=== PATIENT | female | born 1955 | race African-American/Black ===

== ENCOUNTER 2016-03-24 13:26 | Emergency (ER) | payer MEDICARE, OTHER ==
[~2016-03-24] VITALS: Ht 157.5 cm; Wt 81.6 kg
[~2016-03-24 13:26] MED LIST: [UNRECOGNIZED DRUG - REMARK]; [UNRECOGNIZED DRUG - REMARK]
[2016-03-24 13:44] VITALS: BP 112/69
[2016-03-24 14:42] LABS: BASOPHILS % (AUTO) 0.4 % (0.0-2.0); DIFF TOTAL % 100 %; EOSINOPHILS # (AUTO) 0.2 /CMM (0.0-0.7); EOSINOPHILS % (AUTO) 2.3 % (0.0-6.0); HEMATOCRIT 35 % (33-45); HEMOGLOBIN 11.4 g/dL (11.5-14.8); LYMPHOCYTES # (AUTO) 2.7 /CMM (0.8-4.8); LYMPHOCYTES % (AUTO) 40.5 % (20.0-44.0); MEAN CORPUSCULAR HEMOGLOBIN 28 PG (26.0-33.0); MEAN CORPUSCULAR HGB CONC 33 g/dl (31.0-36.0); MEAN CORPUSCULAR VOLUME 86 fL (82-100); MONOCYTES # (AUTO) 0.5 /CMM (0.1-1.30); MONOCYTES % (AUTO) 8.2 % (2.0-12.0); NEUTROPHILS # (AUTO) 3.3 /CMM (1.8-8.9); NEUTROPHILS % (AUTO) 48.6 % (43.0-81.0); PLATELET COUNT (AUTO) 201 /CMM (150-450); RED BLOOD CELL COUNT(AUTO) 4.05 MIL/uL (4.0-5.2); WHITE BLOOD COUNT (AUTO) 6.7 K/uL (4.3-11.0)
[2016-03-24 14:48] LABS: ANION GAP 13 (5-14); CALCIUM, SERUM 9.2 mg/dL (8.5-10.1); CARBON DIOXIDE 27 mmol/L (21-32); CHLORIDE 105 mmol/L (98-107); CREATININE 0.7 mg/dL (0.6-1.3); GFR 103 mL/min (>60); GLUCOSE 81 mg/dL (74-106); SODIUM SERUM 141 mmol/L (136-145); UREA NITROGEN, BLOOD 12 mg/dL (7-18)
[2016-03-24 14:50] LABS: INR 0.99 (0.87-1.13); PROTHROMBIN TIME 10.4 SECS (9.5-12.7)
[2016-03-24 14:53] LABS: ALANINE AMINOTRANSFERASE 21 U/L (12-78); ALBUMIN 3.8 g/dL (3.4-5.0); ASPARTATE AMINOTRANSFERASE 16 U/L (15-37); BILIRUBIN,DIRECT 0.1 mg/dL (0.0-0.2); BILIRUBIN,TOTAL 0.2 mg/dL (0.2-1.0); INDIRECT BILIRUBIN 0.1 mg/dL (0.0-1.1); TOTAL PROTEIN, SERUM 7.5 g/dL (6.4-8.2)
[2016-03-24 14:55] LABS: TROPONIN I < 0.017 ng/mL (0.00-0.056)
== END 2016-03-24 15:47 | disposition home or self-care (01) ==
LOC: ER 13:29
DX: R07.9 Chest pain, unspecified (principal); I10 Essential (primary) hypertension; F41.9 Anxiety disorder, unspecified
CPT/HCPCS: 36415; 71010-TC; 80048-TC; 80076-TC; 84484-TC; 85025-TC; 85730-TC; A4606; Z7610

== ENCOUNTER 2016-09-22 18:00 | Emergency (ER) | payer MEDICARE, OTHER ==
[~2016-09-22] VITALS: Ht 157.5 cm; Wt 86.2 kg
--- NOTE | 2016-09-22 18:08 | NUR ---
PT CALLED TO TRIAGE, PT NOT IN WAITING ROOM
[2016-09-22 18:10] VITALS: BP 100/77
[2016-09-22] MEDS ORDERED: IBUPROFEN 600 MG TABLET PO ONE ×2 (18:38→19:00)
== END 2016-09-22 19:12 | disposition home or self-care (01) ==
LOC: ER 18:09
DX: S60.212A Contusion of left wrist, initial encounter (principal); F41.9 Anxiety disorder, unspecified; I10 Essential (primary) hypertension; W22.8XXA Striking against or struck by other objects, initial encounter; Y93.89 Activity, other specified; Y92.89 Other specified places as the place of occurrence of the external cause; Y99.8 Other external cause status
CPT/HCPCS: A4606; Z7610

== ENCOUNTER 2017-01-18 16:19 | Emergency (ER) | payer MEDICARE, OTHER ==
[~2017-01-18] VITALS: Ht 157.5 cm; Wt 81.6 kg
[2017-01-18 16:22] VITALS: BP 122/80
[2017-01-18] MEDS ORDERED: IBUPROFEN 600 MG TABLET PO ONE ×2 (16:49→17:00)
== END 2017-01-18 18:02 | disposition home or self-care (01) ==
LOC: ER 16:21
DX: M25.561 Pain in right knee (principal); F41.9 Anxiety disorder, unspecified; G89.29 Other chronic pain; I10 Essential (primary) hypertension; Z90.710 Acquired absence of both cervix and uterus
CPT/HCPCS: 73564; 99284; A4606; Z7610

== ENCOUNTER 2017-03-04 16:54 | Emergency (ER) | payer MEDICARE, OTHER ==
[~2017-03-04] VITALS: Ht 157.5 cm; Wt 81.6 kg
[2017-03-04 16:54] VITALS: BP 136/89
--- NOTE | 2017-03-04 18:03 | NUR ---
CALLED BY TYREE CARMONA FOR MSE, NO ANSWER
== END 2017-03-04 18:05 | disposition left against medical advice (07) ==
LOC: ER 16:57
DX: Z53.21 Procedure and treatment not carried out due to patient leaving prior to being seen by health care provider (principal)
CPT/HCPCS: A4606; Z7610

== ENCOUNTER 2019-04-23 22:34 | Emergency (ER) | payer MEDICARE, OTHER ==
[~2019-04-23] VITALS: Ht 160 cm; Wt 68.0 kg
[2019-04-23 22:39] VITALS: BP 131/78
--- NOTE | 2019-04-23 22:54 | NUR ---
PT CAME TO ER BED 2 C/O LEFT HAND PAIN. PT STATES THAT SHE WAS GETTING CLOTHES OUT OF HER TRUNK OF THE CAR WHEN THE TRUNK DOOR HIT HER LEFT HAND (NOT CLAMPING HER HAND). PT STATES A THROBBING PAIN 10/10, ABLE TO WRIGGLE FINGERS AND WRIST. AAOX4. VSS. NO SOB. BREATHING EVENLY AND UNLABORED ON ROOM AIR.
[2019-04-23] MEDS ORDERED: KETOROLAC TROMETHAMINE INJ 60 MG/2 ML VIAL IM ONE (23:20)
[2019-04-23] MEDS: KETOROLAC TROMETHAMINE INJ 60 MG/2 ML VIAL IM ONE (23:30)
== END 2019-04-24 00:32 | disposition home or self-care (01) ==
LOC: ER 22:36
DX: S60.222A Contusion of left hand, initial encounter (principal); I10 Essential (primary) hypertension; Z60.2 Problems related to living alone; W18.09XA Striking against other object with subsequent fall, initial encounter; Y93.89 Activity, other specified; Y92.89 Other specified places as the place of occurrence of the external cause; Y99.8 Other external cause status
CPT/HCPCS: 73130-TC; J1885

== ENCOUNTER 2020-03-01 15:03 | Emergency (ER) | payer MEDICARE, OTHER ==
[~2020-03-01] VITALS: Ht 157.5 cm; Wt 81.6 kg
--- NOTE | 2020-03-01 15:20 | NUR ---
SEEN BY DR MCDONALD, WAITING FOR ORDERS
--- NOTE | 2020-03-01 16:03 | NUR ---
URINE SAMPLE AND COVID SWAB COLLECTED AND SENT TO LAB. BLOOD DRAWN BY PHLEB
[2020-03-01 16:08] LABS: BILIRUBIN,URINE SMALL (NEGATIVE); COLOR,URINE YELLOW (YELLOW); LEUKOCYTE ESTERASE ,URINE Negative (NEGATIVE); NITRITE, URINE Negative (NEGATIVE); PROTEIN,URINE 100 mg/dl (NEGATIVE); UGLUCOSE Negative (NEGATIVE); UROBILINOGEN,URINE 0.2 EU/dL (0.2)
[2020-03-01 16:15] LABS: BASOPHILS % (AUTO) 0.3 % (0.0-2.0); EOSINOPHILS % (AUTO) 0.3 % (0.0-6.0); HEMATOCRIT 37 % (33-45); HEMOGLOBIN 12.1 g/dL (11.5-14.8); LYMPHOCYTES # (AUTO) 1.6 /CMM (0.8-4.8); LYMPHOCYTES % (AUTO) 33.1 % (20.0-44.0); MEAN CORPUSCULAR HGB CONC 33 g/dl (31.0-36.0); MEAN CORPUSCULAR VOLUME 88 fL (82-100); MONOCYTES # (AUTO) 0.5 /CMM (0.1-1.30); MONOCYTES % (AUTO) 11.4 % (2.0-12.0); NEUTROPHILS # (AUTO) 2.6 /CMM (1.8-8.9); NEUTROPHILS % (AUTO) 54.9 % (43.0-81.0); PLATELET COUNT (AUTO) 159 /CMM (150-450); RED BLOOD CELL COUNT(AUTO) 4.24 MIL/uL (4.0-5.2); WHITE BLOOD COUNT (AUTO) 4.7 K/uL (4.3-11.0)
[2020-03-01 16:19] LABS: BACTERIA,URINE Rare /HPF (None Seen); RBC,URINE 0-2 /HPF (0-2); SQUAMOUS EPITHELIAL CELL,UR Few /HPF (None Seen); WBC,URINE 0-2 /HPF (0-3)
[2020-03-01 16:58] LABS: CARBON DIOXIDE 27 mmol/L (21-32); CHLORIDE 103 mmol/L (98-107); GLUCOSE 94 mg/dL (74-106); POTASSIUM 3.5 mmol/L (3.5-5.1); SODIUM SERUM 141 mmol/L (136-145); UREA NITROGEN, BLOOD 9 mg/dL (7-18)
[2020-03-01 17:03] LABS: ALANINE AMINOTRANSFERASE 61 U/L (12-78); ALBUMIN 3.5 g/dL (3.4-5.0); ALKALINE PHOSPHATASE 43 U/L (46-116); ASPARTATE AMINOTRANSFERASE 65 U/L (15-37); BILIRUBIN,TOTAL 0.4 mg/dL (0.2-1.0); LIPASE 109 U/L (73-393); TOTAL PROTEIN, SERUM 8.2 g/dL (6.4-8.2)
[2020-03-01 18:06] VITALS: BP 109/60
--- NOTE | 2020-03-01 18:06 | NUR ---
Patient discharged to home in stable condition. Written and verbal after care instructions given. Patient verbalizes understanding of instruction.
--- NOTE | 2020-03-02 20:59 | NUR ---
lab called, per lab covid+
== END 2020-03-01 18:07 | disposition home or self-care (01) ==
LOC: ER 15:11
DX: U07.1 COVID-19 (principal); R19.7 Diarrhea, unspecified; R20.0 Anesthesia of skin; R11.0 Nausea; Z80.1 Family history of malignant neoplasm of trachea, bronchus and lung; I10 Essential (primary) hypertension; F41.9 Anxiety disorder, unspecified
CPT/HCPCS: 36415; 80053-TC; 81001; 83690-TC; 84484-TC; 85025-TC; C9803; U0003

== ENCOUNTER 2022-05-09 10:12 | Emergency (ER) | payer MEDICARE, OTHER ==
[~2022-05-09] VITALS: Ht 157.5 cm; Wt 82.1 kg
[2022-05-09 11:26] LABS: BASOPHILS % (AUTO) 0.3 % (0.0-2.0); EOSINOPHILS % (AUTO) 2.5 % (0.0-6.0); HEMATOCRIT 39 % (33-45); HEMOGLOBIN 12.5 g/dL (11.5-14.8); LYMPHOCYTES # (AUTO) 1.4 K/uL (0.8-4.8); MEAN CORPUSCULAR HGB CONC 32 g/dl (31.0-36.0); MEAN CORPUSCULAR VOLUME 89 fL (82-100); MONOCYTES # (AUTO) 0.4 K/uL (0.1-1.30); NEUTROPHILS # (AUTO) 2.7 K/uL (1.8-8.9); NEUTROPHILS % (AUTO) 58.2 % (43.0-81.0); PLATELET COUNT (AUTO) 224 K/uL (150-450); RED BLOOD CELL COUNT(AUTO) 4.41 MIL/uL (4.0-5.2); WHITE BLOOD COUNT (AUTO) 4.6 K/uL (4.3-11.0)
--- NOTE | 2022-05-09 11:27 | NUR ---
Note ascencionone in EDM - 05/09/22 at 1130 by EUNICETAHeraclio PT IN ROOM 7 A/O X4, TOLORATING ROOM AIR, NO DISTRESS NOTED ON ASSESSMENT. C/O: IS CHEST PAIN STARTED WHILE LIFTING WEIGHTS THIS MORNING. HAS RECENTLY STARTED NEW MEDICATION, STARTED EXCESISING MORE AND WENT ON A DIET. PAIN TIGHT 09/01, WHEN AT WORST, CURRENTLY NOT ENDOSING PAIN.
[2022-05-09] MEDS ORDERED: IV NS 0.9% 1,000 ML IV ONE (11:30)
[2022-05-09 11:38] LABS: CALCIUM, SERUM 9.9 mg/dL (8.5-10.1); CARBON DIOXIDE 30 mmol/L (21-32); CHLORIDE 106 mmol/L (98-107); CREATININE 0.8 mg/dL (0.6-1.3); GLUCOSE 87 mg/dL (74-106); POTASSIUM 3.9 mmol/L (3.5-5.1); SODIUM SERUM 142 mmol/L (136-145); UREA NITROGEN, BLOOD 13 mg/dL (7-18)
--- NOTE | 2022-05-09 12:47 | NUR ---
PT IN ROOM 7 A/O X4, TOLORATING ROOM AIR, NO DISTRESS NOTED ON ASSESSMENT. C/O: IS CHEST PAIN STARTED WHILE LIFTING WEIGHTS THIS MORNING. HAS RECENTLY STARTED NEW MEDICATION, STARTED EXCESISING MORE AND WENT ON A DIET. PAIN TIGHT 7/10, WHEN AT WORST, CURRENTLY NOT ENDOSING PAIN.
--- NOTE | 2022-05-09 13:20 | NUR ---
PT SEEN BY DOC AND EDUCATED ON CAUSES OF CHEST PAIN AND. NUTRITION REGARDING PRE- DIABETES AND EXCERSISE REGIMENT. PT DENIES PAIN, SOB, OR DIZZINESS. S/L DISCONINUED DC PAPER WORK SIGNED.
[2022-05-09 13:22] VITALS: BP 124/86
== END 2022-05-09 13:23 | disposition home or self-care (01) ==
LOC: ER 10:19
DX: R07.9 Chest pain, unspecified (principal); I10 Essential (primary) hypertension; F41.9 Anxiety disorder, unspecified; Z60.2 Problems related to living alone
CPT/HCPCS: 99285; 96360; 71045; 93005; 85025; 80048; 36415; 84484; 83880; 82962; J7030

== ENCOUNTER 2022-10-29 19:39 | Emergency (ER) | payer MEDICARE, OTHER ==
[~2022-10-29] VITALS: Ht 157.5 cm; Wt 68.0 kg
[2022-10-29 21:10] LABS: BASOPHILS % (AUTO) 0.4 % (0.0-2.0); EOSINOPHILS # (AUTO) 0.1 K/uL (0.0-0.7); EOSINOPHILS % (AUTO) 1.8 % (0.0-6.0); HEMATOCRIT 35 % (33-45); HEMOGLOBIN 11.7 g/dL (11.5-14.8); LYMPHOCYTES # (AUTO) 2.5 K/uL (0.8-4.8); LYMPHOCYTES % (AUTO) 36.5 % (20.0-44.0); MEAN CORPUSCULAR HEMOGLOBIN 30 PG (26.0-33.0); MEAN CORPUSCULAR HGB CONC 33 g/dl (31.0-36.0); MEAN CORPUSCULAR VOLUME 90 fL (82-100); MONOCYTES # (AUTO) 0.5 K/uL (0.1-1.30); MONOCYTES % (AUTO) 7.5 % (2.0-12.0); NEUTROPHILS # (AUTO) 3.7 K/uL (1.8-8.9); NEUTROPHILS % (AUTO) 53.8 % (43.0-81.0); PLATELET COUNT (AUTO) 224 K/uL (150-450); RED BLOOD CELL COUNT(AUTO) 3.91 MIL/uL (4.0-5.2); RED CELL DISTRIBUTION WIDTH 14.4 % (11.5-15.0); WHITE BLOOD COUNT (AUTO) 6.8 K/uL (4.3-11.0)
[2022-10-29 21:43] LABS: CALCIUM, SERUM 9.7 mg/dL (8.5-10.1); CARBON DIOXIDE 27 mmol/L (21-32); CHLORIDE 103 mmol/L (98-107); GLUCOSE 82 mg/dL (74-106); POTASSIUM 3.4 mmol/L (3.5-5.1); SODIUM SERUM 140 mmol/L (136-145); UREA NITROGEN, BLOOD 14 mg/dL (7-18)
[2022-10-29 23:47] VITALS: BP 138/87; TEMP 98.8; O2SAT 100
== END 2022-10-29 23:48 | disposition home or self-care (01) ==
LOC: ER 19:42
DX: R07.89 Other chest pain (principal); F41.9 Anxiety disorder, unspecified; Z60.2 Problems related to living alone
CPT/HCPCS: 36415; 71045-TC; 80048-TC; 83880; 84484-TC; 85025-TC; 85378-TC; 93970-TC

== ENCOUNTER 2023-06-15 13:08 | Emergency (ER) | payer MEDICARE, OTHER ==
[~2023-06-15] VITALS: Ht 160 cm; Wt 68.0 kg
[2023-06-15 14:35] LABS: BASOPHILS % (AUTO) 0.4 % (0.0-2.0); EOSINOPHILS # (AUTO) 0.1 K/uL (0.0-0.7); EOSINOPHILS % (AUTO) 0.8 % (0.0-6.0); HEMATOCRIT 36 % (33-45); HEMOGLOBIN 11.7 g/dL (11.5-14.8); LYMPHOCYTES # (AUTO) 1.4 K/uL (0.8-4.8); LYMPHOCYTES % (AUTO) 19.8 % (20.0-44.0); MEAN CORPUSCULAR HEMOGLOBIN 29 PG (26.0-33.0); MEAN CORPUSCULAR HGB CONC 33 g/dl (31.0-36.0); MEAN CORPUSCULAR VOLUME 88 fL (82-100); MONOCYTES # (AUTO) 1.1 K/uL (0.1-1.30); MONOCYTES % (AUTO) 15.2 % (2.0-12.0); NEUTROPHILS # (AUTO) 4.6 K/uL (1.8-8.9); NEUTROPHILS % (AUTO) 63.8 % (43.0-81.0); PLATELET COUNT (AUTO) 207 K/uL (150-450); RED BLOOD CELL COUNT(AUTO) 4.05 MIL/uL (4.0-5.2); WHITE BLOOD COUNT (AUTO) 7.2 K/uL (4.3-11.0)
[2023-06-15 14:41] LABS: APPEARANCE,URINE Clear (CLEAR); BILIRUBIN,URINE Negative (NEGATIVE); BLOOD, URINE Negative Ery/uL (NEGATIVE); COLOR,URINE YELLOW (YELLOW); KETONES,URINE Trace mg/dL (NEGATIVE); LEUKOCYTE ESTERASE ,URINE Trace (NEGATIVE); NITRITE, URINE Negative (NEGATIVE); PROTEIN,URINE Negative (NEGATIVE); UGLUCOSE Negative (NEGATIVE); UROBILINOGEN,URINE 0.2 EU/dL (0.2)
[2023-06-15 14:44] LABS: CALCIUM, SERUM 8.8 mg/dL (8.5-10.1); CARBON DIOXIDE 30 mmol/L (21-32); CHLORIDE 102 mmol/L (98-107); CREATININE 0.8 mg/dL (0.6-1.3); GLUCOSE 79 mg/dL (74-106); POTASSIUM 3.7 mmol/L (3.5-5.1); SODIUM SERUM 137 mmol/L (136-145); UREA NITROGEN, BLOOD 9 mg/dL (7-18)
[2023-06-15 14:59] LABS: NT-PRO BNP 99 pg/mL (0-125)
[2023-06-15 15:08] LABS: ADD URINE CULTURE NO; BACTERIA,URINE Rare /HPF (None Seen); RBC,URINE NONE SEEN /HPF (0-2); SQUAMOUS EPITHELIAL CELL,UR Few /HPF (None Seen); WBC,URINE 0-3 /HPF (0-3)
[2023-06-15 15:09] LABS: ALBUMIN 3.7 g/dL (3.4-5.0); BILIRUBIN,DIRECT 0.1 mg/dL (0.0-0.2); BILIRUBIN,TOTAL 0.4 mg/dL (0.2-1.0); TOTAL PROTEIN, SERUM 7.6 g/dL (6.4-8.2)
[2023-06-15 15:34] VITALS: BP 138/74; TEMP 98.2; O2SAT 98
== END 2023-06-15 15:35 | disposition home or self-care (01) ==
LOC: ER 13:13
DX: R07.89 Other chest pain (principal); R10.13 Epigastric pain; R51.9 Headache, unspecified; I10 Essential (primary) hypertension; Z79.899 Other long term (current) drug therapy; Z60.2 Problems related to living alone
CPT/HCPCS: 36415; 71045-TC; 80048-TC; 80076-TC; 81001; 83690-TC; 83880; 84484-TC; 85025-TC